=== PATIENT | female | born 1955 | race Caucasian/White ===

== ENCOUNTER 2018-07-08 08:25 | Emergency (ER) | payer SELFPAY ==
[2018-07-08] MEDS ORDERED: DIPHENHYDRAMINE HCL 50 MG/ML VIAL IVP ONE (08:40)
[2018-07-08] MEDS ORDERED: 0.9 % SODIUM CHLORIDE 1,000 ML BAG IV ONE (08:40)
[2018-07-08] MEDS ORDERED: DIAZEPAM 5MG/ML **10ML VIAL IVP ONE (08:41)
--- NOTE | 2018-07-08 08:48 | Emergency Department Record ---
History of Present Illness - General Chief Complaint: Dizziness Stated Complaint: DIZZY/NAUSEA Time Seen by Provider: 07/08/18 08:34 Source: Patient Mode of Arrival: Ambulatory Limitations: No limitations - History of Present Illness Initial Comments: The patient is here due to "dizziness" for about 48 hours. She states the onset was gradual and she describes it as feeling like the room is spinning and sometimes off balance. The symptoms are worse with standing or with head movement from side to side. She has had similar problems multiple times in the past and has gone to the ER for it. She denies any arm or leg numbness, weakness , visual changes, or trouble swallowing. MD Complaint: Dizziness Onset/Timin -: Days(s) Timing: Gradual onset Description: Difficulty walking, Nausea, Off-balance, Sense of movement History of Same: No History of Trauma: No Severity: Moderate Improves With: Remaining still Worsens With: Movement Associated Symptoms: Denies other symptoms - Vanessa Coma Scale Eye Response: (4) Open spontaneously Motor Response: (6) Obeys commands Verbal Response: (5) Oriented Sneads Total: 15 - Related Data Previous Rx's Medication Instructions Recorded Meclizine HCl [Antivert] 25 mg PO Q8H #21 tablet 07/08/18 Allergies Allergy/AdvReac Type Severity Reaction Status Date / Time Carbapenems Allergy Unknown PT UNSURE Verified 07/08/18 08:33 OF REACTION Cephalosporins Allergy Unknown PT UNSURE Verified 07/08/18 08:33 OF REACTION codeine Allergy Unknown NAUSEA Verified 07/08/18 08:33 Penicillins Allergy Unknown NAUSEA Verified 07/08/18 08:33 Travel Screening - Travel/Exposure Within Last 30 Days Have you traveled within the last 30 days?: No Review of Systems Constitutional: Denies: Chills, Fever Eyes: Denies: Eye discharge ENT: Denies: Congestion Respiratory: Denies: Cough Cardiovascular: Denies: Chest pain Endocrine: Denies: Fatigue Gastrointestinal: Denies: Abdominal pain Genitourinary: Denies: Dysuria Musculoskeletal: Denies: Arthralgia, Back pain Past Medical History - SOCIAL HISTORY Smoking Status: Current every day smoker Alcohol Use: None Drug Use: None - RESPIRATORY Hx Respiratory Disorders: Yes Hx COPD: Yes - CARDIOVASCULAR Hx Cardio Disorders: Yes Hx Abnormal EKG: Yes Hx Cardiac Cath: Yes (2 stents 2007 enriqueta) Hx Chest Pain: Yes Hx Hypertension: Yes Comment:: hyperlipdemia - NEURO Hx Neuro Disorders: Yes Comment:: memory issues - GI Hx GI Disorders: Yes Hx Reflux: Yes Hx Irritable Bowel: Yes Hx Ulcer: Yes Comment:: gastritis - Hx Genitourinary Disorders: No - ENDOCRINE Hx Endocrine Disorders: No Hx Diabetes: No Hx Thyroid Disease: No - MUSCULOSKELETAL Hx Musculoskeletal Disorders: No - PSYCH Hx Psych Problems: Yes Hx Anxiety: Yes - HEMATOLOGY/ONCOLOGY Hx Hematology/Oncology Disorders: Yes Hx Cancer: Yes (throat) Hx Chemotherapy: Yes (2007) Hx Radiation Therapy: Yes (2007) Hx Blood Transfusions: Yes Hx Blood Transfusion Reaction: No Family Medical History Any Significant Family History?: Yes Hx Cancer: Mother Hx Dementia: Mother Hx Heart Disease: Mother Hx HTN: Father, Mother Hx Resp Disorders: Father Physical Exam - General General Appearance: Alert, Oriented x3, Cooperative, No acute distress - Head Head exam: Atraumatic, Normocephalic, Normal inspection - Eye Eye exam: Normal appearance, PERRL, EOMI, Nystagmus (bilaterally horizontally.) - ENT ENT exam: Normal exam, Mucous membranes moist, Normal external ear exam, Normal orophraynx, TM's normal bilaterally Throat exam: Normal inspection. negative: Tonsillar erythema, Tonsillar exudate - Neck Neck exam: Normal inspection, Full ROM. negative: Lymphadenopathy, Meningismus , Tenderness - Respiratory Respiratory exam: Normal lung sounds bilaterally. negative: Respiratory distress - Cardiovascular Cardiovascular Exam: Regular rate, Normal rhythm, Normal heart sounds - GI/Abdominal GI/Abdominal exam: Soft, Normal bowel sounds. negative: Tenderness - Extremities Extremities exam: Normal inspection, Full ROM, Normal capillary refill. negative: Tenderness - Neurological Neurological exam: Alert, Oriented X3, Reflexes normal, Other (Neg Drift and Rhomberg exams.). negative: Altered, Motor sensory deficit - Psychiatric Psychiatric exam: negative: Anxious Course Vital Signs 07/08/18 08:30 Temperature 98.0 F Pulse Rate 78 Respiratory 18 Rate Blood Pressure 134/99 Pulse Ox 96 - Reevaluation(s) Reevaluation #1: The patient is doing a lot better. Her dizziness is 90% improved. She is able to get up and walk with very minimal difficulty. I did explain to her that her ED evaluation is all normal for her. She will be discharged on Antivert and is to see her PCP if not better in 2 days. 07/08/18 10:04 Medical Decision Making - Data Complexity MDM Data: Labs Ordered and/or Reviewed, X-Ray Ordered and/or Reviewed, EKG Ordered and/or Reviewed - Lab Data Result diagrams: 07/08/18 08:35 07/08/18 08:35 - EKG Data -: EKG Interpreted by Me EKG: No Acute Changes, Unchanged From Previous - Radiology Data Radiology results: Report reviewed (Head CT: Normal per Rad.) Disposition Disposition: Discharge Clinical Impression: Vertigo Disposition: Home, Self-Care Condition: (2) Stable Instructions: Dizziness (ED) Additional Instructions: Please continue your regular medicines and take the Antivert as directed. Please see your family doctor if not better in 1-2 days. Please return to the ER for any worsening symptoms. Prescriptions: Meclizine HCl [Antivert] 25 mg PO Q8H #21 tablet Forms: Patient Portal Access Time of Disposition: 10:07 Quality - Quality Measures Quality Measures: N/A - Blood Pressure Screening View Details: Yes Does Patient Have Any of the Following: Active Dx of HTN Blood Pressure Classification: Hypertensive Reading Systolic Measurement: 134 Diastolic Measurement: 99 Screening for High Blood Pressure: Patient Exclusion, Hx of HTN [G9744]
[2018-07-08 08:59] LABS: BASO % 0.8 % (0-6); EOS % 0.9 % (0-6); GRAN % 68.3 % (47-80); HEMATOCRIT 45.8 % (35.0-47.0); HEMOGLOBIN 15.5 gm/dl (11.6-16.0); LYMPH % 23.6 % (16-45); MEAN CELL VOLUME 93.5 fl (81-97); MEAN CORPUSCULAR HEMOGLOBIN 31.6 pg (27-33); MEAN CORPUSCULAR HGB CONC 33.8 g/dl (32-36); MEAN PLATELET VOLUME 10.5 fl (7.4-10.4); MONO % 6.4 % (0-9); PLATELET COUNT 245 K/uL (130-400); RED CELL DISTRIBUTION WIDTH 13.7 % (11.5-14.5); WHITE BLOOD COUNT W/O DIFF 6.6 K/uL (4.2-12.2)
[2018-07-08 09:12] LABS: BLOOD UREA NITROGEN 12 mg/dL (8-23); CREATININE 0.8 mg/dL (0.5-0.9); EST GLOMERULAR FILTRATION RATE > 60 mL/min
[2018-07-08 09:15] LABS: GLUCOSE,RANDOM 115 mg/dL (74-109)
[2018-07-08 09:17] LABS: ALT/SGPT 6 U/L (<33)
[2018-07-08 09:18] LABS: ALB/GLOB RATIO 1.4 (1.1-1.8); ALBUMIN 4.1 g/dL (4.0-5.0); ALKALINE PHOSPHATASE 61 U/L (35-104); AST/SGOT 14 U/L (10.0-35.0)
== END 2018-07-08 10:29 | disposition home or self-care (01) ==
LOC: ER 08:25
DX: R42 Dizziness and giddiness (principal); R11.0 Nausea; I10 Essential (primary) hypertension; J44.9 Chronic obstructive pulmonary disease, unspecified; F17.210 Nicotine dependence, cigarettes, uncomplicated
CPT/HCPCS: 99284 ×2; 96374; 96375; 96361; 85025; 80053; 70450; 93005; 93010; J3360; J1200; J7030

== ENCOUNTER 2018-08-30 13:13 | Emergency (ER) | payer SELFPAY ==
[2018-08-30] MEDS ORDERED: 0.9 % SODIUM CHLORIDE 1,000 ML BAG IV ONE (13:47)
--- NOTE | 2018-08-30 13:49 | Emergency Department Record ---
History of Present Illness - General Chief Complaint: Dizziness Stated Complaint: dizzy,sweats,nausea, Time Seen by Provider: 08/30/18 13:47 Source: Patient Mode of Arrival: Ambulatory - History of Present Illness Initial Comments: 20 minutes of dizziness and her balance was off and she vomited and started to feel better. Under stress her mom . No headache and no pain any where and once she vomited she started to improve. NO vertigo and no abd pain and she feels back to baseline. MD Complaint: Dizziness -: Days(s) Description: Lightheadedness, Nausea Improves With: Nothing Worsens With: Nothing - Vanessa Coma Scale Eye Response: (4) Open spontaneously Motor Response: (6) Obeys commands Verbal Response: (5) Oriented Vanessa Total: 15 - Related Data Allergies Allergy/AdvReac Type Severity Reaction Status Date / Time Carbapenems Allergy Unknown PT UNSURE Verified 08/30/18 13:30 OF REACTION Cephalosporins Allergy Unknown PT UNSURE Verified 08/30/18 13:30 OF REACTION codeine Allergy Unknown NAUSEA Verified 08/30/18 13:30 Penicillins Allergy Unknown NAUSEA Verified 08/30/18 13:30 Travel Screening - Travel/Exposure Within Last 30 Days Have you traveled within the last 30 days?: No Review of Systems Reviewed: No additional complaints except as noted below Constitutional: Reports: As per HPI. Denies: Chills, Fever, Malaise, Night sweats, Weakness, Weight change Eyes: Reports: As per HPI. Denies: Eye discharge, Eye pain, Photophobia, Vision change ENT: Reports: As per HPI. Denies: Congestion, Dental pain, Ear pain, Epistaxis , Hearing loss, Throat pain Respiratory: Reports: As per HPI. Denies: Cough, Dyspnea, Hemoptysis, Stridor, Wheezes Cardiovascular: Reports: As per HPI. Denies: Arrhythmia, Chest pain, Dyspnea on exertion, Edema, Murmurs, Orthopnea, Palpitations, Paroxysmal nocturnal dyspnea, Rheumatic Fever, Syncope Endocrine: Reports: As per HPI. Denies: Fatigue, Heat or cold intolerance, Polydipsia, Polyuria Gastrointestinal: Reports: As per HPI, Vomiting. Denies: Abdominal pain, Constipation, Diarrhea, Hematemesis, Hematochezia, Melena, Nausea Genitourinary: Reports: As per HPI. Denies: Abnormal menses, Discharge, Dyspareunia, Dysuria, Frequency, Hematuria, Incontinence, Retention, Urgency Musculoskeletal: Reports: As per HPI. Denies: Arthralgia, Back pain, Gout, Joint swelling, Myalgia, Neck pain Skin: Reports: As per HPI. Denies: Bruising, Change in color, Change in hair/ nails, Lesions, Pruritus, Rash Neurological: Reports: As per HPI. Denies: Abnormal gait, Confusion, Headache, Numbness, Paresthesias, Seizure, Tingling, Tremors, Vertigo, Weakness Psychiatric: Reports: As per HPI. Denies: Anxiety, Auditory hallucinations, Depression, Homicidal thoughts, Suicidal thoughts, Visual hallucinations Hematological/Lymphatic: Reports: As per HPI. Denies: Anemia, Blood Clots, Easy bleeding, Easy bruising, Swollen glands Past Medical History - SOCIAL HISTORY Smoking Status: Current every day smoker Alcohol Use: None Drug Use: None - RESPIRATORY Hx Respiratory Disorders: Yes Hx COPD: Yes - CARDIOVASCULAR Hx Cardio Disorders: Yes Hx Abnormal EKG: Yes Hx Cardiac Cath: Yes (2007) Hx Chest Pain: Yes Hx Hypertension: Yes Comment:: hyperlipdemia - NEURO Hx Neuro Disorders: Yes Hx Dizziness: Yes Comment:: memory issues - GI Hx GI Disorders: Yes Hx Reflux: Yes Hx Irritable Bowel: Yes Hx Ulcer: Yes Comment:: gastritis - Hx Genitourinary Disorders: No - ENDOCRINE Hx Endocrine Disorders: No Hx Diabetes: No Hx Thyroid Disease: No - MUSCULOSKELETAL Hx Musculoskeletal Disorders: No - PSYCH Hx Psych Problems: Yes Hx Anxiety: Yes - HEMATOLOGY/ONCOLOGY Hx Hematology/Oncology Disorders: Yes Hx Cancer: Yes (throat) Hx Chemotherapy: Yes (2007) Hx Radiation Therapy: Yes (2007) Hx Blood Transfusions: Yes Hx Blood Transfusion Reaction: No Family Medical History Any Significant Family History?: Yes Hx Cancer: Mother Hx Dementia: Mother Hx Heart Disease: Mother Hx HTN: Father, Mother Hx Resp Disorders: Father Physical Exam - General General Appearance: Alert, Oriented x3, Cooperative, No acute distress - Head Head exam: Normal inspection - Eye Eye exam: Normal appearance, PERRL Pupils: Normal accommodation - ENT ENT exam: Normal exam, Mucous membranes moist, Normal external ear exam, Normal orophraynx, TM's normal bilaterally Ear exam: Normal external inspection. negative: External canal tenderness Nasal Exam: Normal inspection. negative: Discharge, Sinus tenderness Mouth exam: Normal external inspection, Tongue normal Teeth exam: Normal inspection. negative: Dental caries Throat exam: Normal inspection. negative: Tonsillar erythema, Tonsillar exudate - Neck Neck exam: Normal inspection, Full ROM. negative: Tenderness - Respiratory Respiratory exam: Normal lung sounds bilaterally. negative: Respiratory distress - Cardiovascular Cardiovascular Exam: Regular rate, Normal rhythm, Normal heart sounds - GI/Abdominal GI/Abdominal exam: Soft, Normal bowel sounds. negative: Tenderness - Rectal Rectal exam: Deferred - exam: Deferred - Extremities Extremities exam: Normal inspection, Full ROM, Normal capillary refill. negative: Tenderness - Back Back exam: Reports: Normal inspection, Full ROM. Denies: Muscle spasm, Rash noted, Tenderness - Neurological Neurological exam: Alert, Normal gait, Oriented X3, Reflexes normal - Psychiatric Psychiatric exam: Normal affect, Normal mood - Skin Skin exam: Dry, Intact, Normal color, Warm Course Vital Signs 08/30/18 13:26 Temperature 97.4 F L Pulse Rate 67 Respiratory 20 Rate Blood Pressure 135/75 Pulse Ox 98 - Reevaluation(s) Reevaluation #1: she feels better 08/30/18 14:43 Medical Decision Making - Data Complexity MDM Data: Labs Ordered and/or Reviewed - Lab Data Result diagrams: 08/30/18 13:30 08/30/18 13:30 Disposition Clinical Impression: Dehydration, Gastroenteritis Vomiting Qualifiers: Vomiting type: unspecified Vomiting Intractability: non-intractable Nausea presence: with nausea Qualified Code(s): R11.2 - Nausea with vomiting, unspecified Disposition: Home, Self-Care Condition: (1) Good Instructions: Gastroenteritis (ED), Dehydration (ED) Additional Instructions: follow up with Dr. Petit next week clear liquids today and bland foods tomorrow Forms: Patient Portal Access Time of Disposition: 14:43 Quality - Quality Measures Quality Measures: N/A - Blood Pressure Screening Does Patient Have Any of the Following: No Blood Pressure Classification: Pre-Hypertensive BP Reading Systolic Measurement: 135 Diastolic Measurement: 75 Screening for High Blood Pressure: < Pre-Hypertensive BP, F/U Documented > [ G8950] Pre-Hypertensive Follow-up Interventions: Referral to alternative/primary care provider.
[2018-08-30 13:56] LABS: BASO % 0.5 % (0-6); EOS % 0.5 % (0-6); HEMOGLOBIN 14.9 gm/dl (11.6-16.0); LYMPH % 23.2 % (16-45); MEAN CELL VOLUME 93.4 fl (81-97); MEAN CORPUSCULAR HEMOGLOBIN 31.6 pg (27-33); MEAN CORPUSCULAR HGB CONC 33.9 g/dl (32-36); MEAN PLATELET VOLUME 10.6 fl (7.4-10.4); MONO % 5.8 % (0-9); PLATELET COUNT 259 K/uL (130-400); RED BLOOD COUNT 4.71 M/uL (3.80-5.40); RED CELL DISTRIBUTION WIDTH 13.2 % (11.5-14.5); WHITE BLOOD COUNT W/O DIFF 8.1 K/uL (4.2-12.2)
[2018-08-30 14:09] LABS: BLOOD UREA NITROGEN 12 mg/dL (8-23)
[2018-08-30 14:10] LABS: CREATININE 0.8 mg/dL (0.5-0.9); EST GLOMERULAR FILTRATION RATE > 60 mL/min; TOTAL PROTEIN 6.6 g/dL (6.6-8.7)
[2018-08-30 14:12] LABS: GLUCOSE,RANDOM 133 mg/dL (74-109)
[2018-08-30 14:15] LABS: ALBUMIN 4.1 g/dL (4.0-5.0); ALKALINE PHOSPHATASE 60 U/L (35-104); ALT/SGPT 8 U/L (<33); AST/SGOT 15 U/L (10.0-35.0); BILIRUBIN,DIRECT < 0.2 mg/dL (0-0.3); LIPASE 30 U/L (13-60)
== END 2018-08-30 14:52 | disposition home or self-care (01) ==
LOC: ER 13:13
DX: E86.0 Dehydration (principal); K52.9 Noninfective gastroenteritis and colitis, unspecified; R11.2 Nausea with vomiting, unspecified; I10 Essential (primary) hypertension; J44.9 Chronic obstructive pulmonary disease, unspecified; F17.210 Nicotine dependence, cigarettes, uncomplicated
CPT/HCPCS: 80048; 80076; 83690; 85025; 93005; 93010; 99284; J7030

== ENCOUNTER 2019-01-23 16:32 | Emergency (ER) | payer MEDICARE, OTHER ==
--- NOTE | 2019-01-23 17:06 | Emergency Department Record ---
History of Present Illness - General Chief complaint: Weakness Stated complaint: DEHYDRATED Time Seen by Provider: 01/23/19 16:54 Source: Patient, Family (daughter) Mode of Arrival: Ambulatory - History of Present Illness Initial comments: Pt with two days of diarrhea at home. "% stools a day that are soft and dark". No red blood. No AP, no fever. No nausea. Tolerating po fluids. No travel or antibiotic use. Onset/Timin -: Days(s) Severity: Mild - Vanessa Coma Scale Eye Response: (4) Open spontaneously Motor Response: (6) Obeys commands Verbal Response: (5) Oriented Vanessa Total: 15 - Related Data Home Medications Medication Instructions Recorded Confirmed Last Taken Albuterol Sulfate [Proair Hfa] 1 puff INH ASDIR PRN 01/23/19 01/23/19 Unknown Umeclidinium [place] (Incruse) 1 puff INH DAILY 01/23/19 01/23/19 Unknown [Incruse Ellipta] Allergies Allergy/AdvReac Type Severity Reaction Status Date / Time Carbapenems Allergy Unknown PT UNSURE Verified 08/30/18 13:30 OF REACTION Cephalosporins Allergy Unknown PT UNSURE Verified 08/30/18 13:30 OF REACTION codeine Allergy Unknown NAUSEA Verified 08/30/18 13:30 Penicillins Allergy Unknown NAUSEA Verified 08/30/18 13:30 Travel Screening - Travel/Exposure Within Last 30 Days Have you traveled within the last 30 days?: No - Travel/Exposure Within Last Year Have you traveled outside the [place] in the last year?: No - Additonal Travel Details Have you been exposed to anyone with a communicable illness?: No - Travel Symptoms Symptom Screening: Weakness, Fatigue, Diarrhea, Lack of Appetite Review of Systems Constitutional: Denies: Chills, Fever, Weakness Eyes: Denies: Eye discharge, Photophobia ENT: Denies: Congestion, Ear pain, Throat pain Respiratory: Denies: Cough, Stridor, Wheezes Cardiovascular: Denies: Arrhythmia, Chest pain Endocrine: Denies: Fatigue, Polyuria Gastrointestinal: Reports: As per HPI, Diarrhea. Denies: Abdominal pain, Nausea , Vomiting Musculoskeletal: Denies: Back pain Skin: Denies: Bruising Neurological: Denies: Confusion, Headache, Tingling Psychiatric: Denies: Anxiety Hematological/Lymphatic: Denies: Anemia Past Medical History - SOCIAL HISTORY Smoking Status: Current every day smoker Alcohol Use: None Drug Use: None - RESPIRATORY Hx Respiratory Disorders: Yes Hx COPD: Yes - CARDIOVASCULAR Hx Cardio Disorders: Yes Hx Abnormal EKG: Yes Hx Cardiac Cath: Yes (2007) Hx Chest Pain: Yes Hx Hypertension: Yes Comment:: hyperlipdemia - NEURO Hx Neuro Disorders: Yes Hx Dizziness: Yes Comment:: memory issues - GI Hx GI Disorders: Yes Hx Reflux: Yes Hx Irritable Bowel: Yes Hx Ulcer: Yes Comment:: gastritis - Hx Genitourinary Disorders: No - ENDOCRINE Hx Endocrine Disorders: No Hx Diabetes: No Hx Thyroid Disease: No - MUSCULOSKELETAL Hx Musculoskeletal Disorders: No - PSYCH Hx Psych Problems: Yes Hx Anxiety: Yes - HEMATOLOGY/ONCOLOGY Hx Hematology/Oncology Disorders: Yes Hx Cancer: Yes (throat) Hx Chemotherapy: Yes (2007) Hx Radiation Therapy: Yes (2007) Hx Blood Transfusions: Yes Hx Blood Transfusion Reaction: No Family Medical History Any Significant Family History?: Yes Hx Cancer: Mother Hx Dementia: Mother Hx Heart Disease: Mother Hx HTN: Father, Mother Hx Resp Disorders: Father Physical Exam - General General Appearance: Alert, Oriented x3, Cooperative, No acute distress - Head Head exam: Atraumatic - Eye Eye exam: Normal appearance, PERRL - ENT ENT exam: Normal exam, Mucous membranes moist, Normal external ear exam, Normal orophraynx, TM's normal bilaterally - Neck Neck exam: Normal inspection, Full ROM. negative: Tenderness - Respiratory Respiratory exam: Normal lung sounds bilaterally. negative: Respiratory distress - Cardiovascular Cardiovascular Exam: Regular rate, Normal rhythm, Normal heart sounds - GI/Abdominal GI/Abdominal exam: Soft, Normal bowel sounds. negative: Guarding, Rebound, Rigid, Tenderness - Rectal Rectal exam: Heme (-) stool. negative: Hemorrhoids (soft light brown stool) - Extremities Extremities exam: Normal inspection - Back Back exam: Reports: Normal inspection - Neurological Neurological exam: Alert, Normal gait, Oriented X3 - Psychiatric Psychiatric exam: Normal affect, Normal mood - Skin Skin exam: Normal color. negative: Rash Course Vital Signs 01/23/19 16:41 Temperature 98.2 F Pulse Rate 89 Respiratory 20 Rate Blood Pressure 138/101 Pulse Ox 99 - Reevaluation(s) Reevaluation #1: 01/23/19 17:10 seen and exam. No blood in stool. No vomiting. no AP. Plan is home with symptomatic care and liquid diet advancing as tolerated. If worse return to ED > Pt and daughter agree Disposition Disposition: Discharge Clinical Impression: Diarrhea Disposition: Home, Self-Care Condition: (1) Good Instructions: Acute Diarrhea (ED) Additional Instructions: Liquid diet, advance as tolerated. Over the counter pepto as needed. Return if continues or worse. Forms: Patient Portal Access Time of Disposition: 17:07 Quality - Quality Measures Quality Measures: N/A - Blood Pressure Screening Does Patient Have Any of the Following: No Blood Pressure Classification: Hypertensive Reading Systolic Measurement: 138 Diastolic Measurement: 101 Screening for High Blood Pressure: < Pre-Hypertensive BP, F/U Documented > [ G8950] Pre-Hypertensive Follow-up Interventions: Follow-up with rescreen every year.
== END 2019-01-23 17:18 | disposition home or self-care (01) ==
LOC: ER 16:32
DX: R19.7 Diarrhea, unspecified (principal); R53.1 Weakness; I10 Essential (primary) hypertension; J44.9 Chronic obstructive pulmonary disease, unspecified; F17.210 Nicotine dependence, cigarettes, uncomplicated
CPT/HCPCS: 99282

== ENCOUNTER 2019-09-25 09:24 | Emergency (ER) | payer MEDICARE, OTHER ==
[2019-09-25] MEDS ORDERED: 0.9 % SODIUM CHLORIDE 1000ML 1,000 ML IV ONE (09:50)
[2019-09-25] MEDS ORDERED: METHYLPREDNISOLONE PF 125MG/VIAL IVP ONE (09:50)
[2019-09-25] MEDS ORDERED: IPRATROPIUM/ALBUTEROL (0.5MG/3MG) NEB INH ONE (09:50)
--- NOTE | 2019-09-25 09:58 | Emergency Department Record ---
History of Present Illness - General Chief complaint: Nausea, Vomiting, Diarrhea Stated complaint: DIARRHEA/MATT Time Seen by Provider: 09/25/19 09:50 Source: Patient, Family (daughter) Mode of Arrival: Ambulatory Limitations: No limitations - History of Present Illness Initial comments: Pt to ED from home with daughter by car. Pt with two issues this AM. Relates one episode of dark color diarrheal stool with nausea but no vomiting. No AP or fever. [place] fine last PM with no unusual foods, medications, pepto. Takes one 81mg ASA per day. No hx GI bleeding. No ill contacts. Also related MATT with hx tobacco one pack per day. Has hx of COPD/Emphysema and used inhaler this AM without relief. No current steroid use, but hx of using htem. Has non productive cough. Pt relates hx of "throat cancer" 2005 with surgery, chemo, and radiation. No current therapy. Onset/Timin -: Week(s) Description of Diarrhea: Water, Other Associated Abdominal Pain: No Improves with: None Worsens with: None Associated Symptoms: Cough - Related Data Previous Rx's Medication Instructions Recorded Azithromycin [Zithromax] 250 mg PO DAILY 5 Days #6 tablet 09/25/19 Prednisone [Prednisone 20Mg] 20 mg PO DAILY 5 Days #10 tab 09/25/19 Allergies Allergy/AdvReac Type Severity Reaction Status Date / Time Carbapenems Allergy Unknown PT UNSURE Verified 09/25/19 09:32 OF REACTION Cephalosporins Allergy Unknown PT UNSURE Verified 09/25/19 09:32 OF REACTION codeine Allergy Unknown NAUSEA Verified 09/25/19 09:32 Penicillins Allergy Unknown NAUSEA Verified 09/25/19 09:32 Travel Screening - Travel/Exposure Within Last 30 Days Have you traveled within the last 30 days?: No - Travel/Exposure Within Last Year Have you traveled outside the [place] in the last year?: No - Additonal Travel Details Have you been exposed to anyone with a communicable illness?: No - Travel Symptoms Symptom Screening: None Review of Systems Constitutional: Denies: Chills, Fever, Malaise, Weakness Eyes: Denies: Eye pain, Photophobia ENT: Denies: Congestion, Ear pain, Throat pain Respiratory: Reports: As per HPI, Cough, Wheezes. Denies: Hemoptysis Cardiovascular: Denies: Arrhythmia, Chest pain, Syncope Endocrine: Denies: Fatigue, Polyuria Gastrointestinal: Reports: Diarrhea, Melena, Nausea. Denies: Abdominal pain, Hematemesis, Vomiting Genitourinary: Denies: Dysuria Musculoskeletal: Denies: Arthralgia, Back pain Skin: Denies: Bruising, Rash Neurological: Denies: Abnormal gait, Headache, Tingling Psychiatric: Denies: Anxiety Hematological/Lymphatic: Denies: Anemia Past Medical History - SOCIAL HISTORY Smoking Status: Current every day smoker Alcohol Use: None Drug Use: None - RESPIRATORY Hx Respiratory Disorders: Yes Hx COPD: Yes Comment:: "Lung anurysm" - CARDIOVASCULAR Hx Cardio Disorders: Yes Hx Abnormal EKG: Yes Hx Cardiac Cath: Yes (2 2007 [email or web address]) Hx Chest Pain: Yes Hx Hypertension: Yes Comment:: hyperlipdemia - NEURO Hx Neuro Disorders: Yes Hx Dizziness: Yes Comment:: memory issues - GI Hx GI Disorders: Yes Hx Reflux: Yes Hx Irritable Bowel: Yes Hx Ulcer: Yes Comment:: gastritis - Hx Genitourinary Disorders: No - ENDOCRINE Hx Endocrine Disorders: No Hx Diabetes: No Hx Thyroid Disease: No - MUSCULOSKELETAL Hx Musculoskeletal Disorders: No - PSYCH Hx Psych Problems: Yes Hx Anxiety: Yes - HEMATOLOGY/ONCOLOGY Hx Hematology/Oncology Disorders: Yes Hx Cancer: Yes (throat) Hx Chemotherapy: Yes (2007) Hx Radiation Therapy: Yes (2007) Hx Blood Transfusions: Yes Hx Blood Transfusion Reaction: No Family Medical History Any Significant Family History?: Yes Hx Cancer: Mother Hx Dementia: Mother Hx Heart Disease: Mother Hx HTN: Father, Mother Hx Resp Disorders: Father Physical Exam - General General Appearance: Alert, Oriented x3, Cooperative, No acute distress - Head Head exam: Atraumatic, Normocephalic - Eye Eye exam: Normal appearance, PERRL, EOMI. negative: Nystagmus - ENT ENT exam: Mucous membranes moist, Normal external ear exam Ear exam: Normal external inspection Nasal Exam: Normal inspection - Neck Neck exam: Normal inspection, Full ROM. negative: Lymphadenopathy, Meningismus, Tenderness - Respiratory Respiratory exam: Decreased breath sounds, Rhonchi, Wheezes. negative: Respiratory distress, Stridor - Cardiovascular Cardiovascular Exam: Regular rate, Normal rhythm. negative: Tachycardia Peripheral Pulses: 2+: Radial (R), Radial (L) - GI/Abdominal GI/Abdominal exam: Soft, Normal bowel sounds. negative: Distended, Guarding, Rebound, Rigid, Tenderness - Rectal Rectal exam: Heme (-) stool, Other (stool is dark, no gross blood. ) - Extremities Extremities exam: Normal inspection, Full ROM. negative: Calf tenderness, Joint swelling, Pedal edema - Back Back exam: Reports: Normal inspection - Neurological Neurological exam: Alert, Normal gait, Oriented X3 - Psychiatric Psychiatric exam: Normal affect, Normal mood - Skin Skin exam: Normal color. negative: Rash Course Vital Signs 09/25/19 09:33 Temperature 98 F Pulse Rate 64 Respiratory 20 Rate Blood Pressure 151/99 Pulse Ox 96 - Reevaluation(s) Reevaluation #1: 09/25/19 11:13 Pt with much improved lung sounds after treatemetn. XR with infiltrate. Cough at home. Plan home with AB , steroids, and continue inhalers. See family doc. Pt agrees with plan. Medical Decision Making - Lab Data Result diagrams: 09/25/19 09:58 09/25/19 09:58 Disposition Disposition: Discharge Clinical Impression: Bronchitis, COPD exacerbation, Tobacco abuse Disposition: Home, Self-Care Condition: (2) Stable Instructions: COPD (Chronic Obstructive Pulmonary Disease) (ED) Additional Instructions: Take meds and use inhalers as instructed. STOP SMOKING TODAY Family doc in 2-3 days Return to the ED as needed. Prescriptions: Prednisone [Prednisone 20Mg] 20 mg PO DAILY 5 Days #10 tab Azithromycin [Zithromax] 250 mg PO DAILY 5 Days #6 tablet Forms: Patient Portal Access Time of Disposition: 11:15 Quality - Quality Measures Quality Measures: N/A - Blood Pressure Screening Does Patient Have Any of the Following: No Blood Pressure Classification: Hypertensive Reading Systolic Measurement: 151 Diastolic Measurement: 99 Screening for High Blood Pressure: < Pre-Hypertensive BP, F/U Documented > [G8950] Pre-Hypertensive Follow-up Interventions: Follow-up with rescreen every year.
[2019-09-25 10:04] LABS: ABSOLUTE NEUTROPHIL COUNT 4.87; BASO % 0.3 % (0-6); EOS % 0.2 % (0-6); GRAN % 73.3 % (47-80); HEMATOCRIT 48.1 % (35.0-47.0); HEMOGLOBIN 15.6 gm/dl (11.6-16.0); LYMPH % 16.7 % (16-45); MEAN CELL VOLUME 93.8 fl (81-97); MEAN CORPUSCULAR HEMOGLOBIN 30.4 pg (27-33); MEAN CORPUSCULAR HGB CONC 32.4 g/dl (32-36); MEAN PLATELET VOLUME 10.9 fl (7.4-10.4); MONO % 9.5 % (0-9); PLATELET COUNT 184 K/uL (130-400); RED BLOOD COUNT 5.13 M/uL (3.80-5.40); RED CELL DISTRIBUTION WIDTH 13.8 % (11.5-14.5); WHITE BLOOD COUNT W/O DIFF 6.6 K/uL (4.2-12.2)
[2019-09-25 10:16] LABS: PARTIAL THROMBOPLASTIN TIME 29.2 SECONDS (24.5-39.1); PROTHROMBIN TIME (PATIENT) 10.1 SECONDS (9.5-12.1)
[2019-09-25 10:17] LABS: BLOOD UREA NITROGEN 12 mg/dL (8-23)
[2019-09-25 10:18] LABS: CREATININE 0.6 mg/dL (0.5-0.9); EST GLOMERULAR FILTRATION RATE > 60 mL/min
[2019-09-25 10:20] LABS: GLUCOSE,RANDOM 104 mg/dL (74-109)
--- NOTE | 2019-09-25 10:56 | RADIOLOGY REPORT ---
EXAMINATION: Two View Chest Radiographs EXAM DATE: 09/25/2019 10:45 AM TECHNIQUE: Frontal and lateral views INDICATION: Cough/MATT hx COPD COMPARISON: 2016 chest x-ray ENCOUNTER: Not applicable FINDINGS: PA and lateral views the chest show no focal lung consolidation, pleural effusion, or pneumothorax. T he cardiac silhouette and pulmonary vascularity appear normal. Hyperexpansion of the lungs is consist ent with pulmonary emphysema. IMPRESSION: 1. No acute cardiopulmonary abnormality. 2. Pulmonary emphysema. Dictated by: Jewel Roberson MD on 09/25/2019 10:51 AM. .
== END 2019-09-25 11:42 | disposition home or self-care (01) ==
LOC: ER 09:24
DX: J44.1 Chronic obstructive pulmonary disease with (acute) exacerbation (principal); J44.0 Chronic obstructive pulmonary disease with (acute) lower respiratory infection; J20.9 Acute bronchitis, unspecified; F17.210 Nicotine dependence, cigarettes, uncomplicated; R19.7 Diarrhea, unspecified; R11.2 Nausea with vomiting, unspecified; I10 Essential (primary) hypertension
CPT/HCPCS: 71046; 80048; 85025; 85610; 85730; 93005; 93010; 94640; 96374; 99284; J2930